=== PATIENT | female | born 1975 | race African-American/Black ===

== ENCOUNTER 2017-01-26 05:40 | Emergency (ER) | payer MEDICAID ==
[~2017-01-26] VITALS: Ht 175.3 cm; Wt 100.0 kg
[~2017-01-26 05:40] MED LIST: ACET-3161 PO
[2017-01-26] MEDS ORDERED: COCAINE 4% TOPICAL SOLN 4ML TOP ONE (08:15)
[2017-01-26 08:46] LABS: BASOPHILS % 0.5 % (0.0-2.0); EOSINOPHILS % 2.2 % (0.0-5.0); HEMATOCRIT. 38.6 % (36.0-48.0); LYMPHOCYTES % 31.9 % (20.0-50.0); MEAN CORPUSCULAR HEMOGLOBIN 28.4 pg (28.0-32.0); MEAN CORPUSCULAR VOLUME 83.9 fL (81.0-99.0); MONOCYTES % 7.4 % (2.0-8.0); PLATELET 295 x1000/uL (130-400); RED CELL DISTRIBUTION WIDTH 14.7 % (11.6-14.6)
[2017-01-26 09:02] LABS: CARBON DIOXIDE 28 mEq/L (21-32); CHLORIDE 108 mEq/L (98-107)
[2017-01-26 13:55] VITALS: BP 141/85
== END 2017-01-26 13:55 | disposition home or self-care (01) ==
LOC: ER 06:04
DX: R04.0 Epistaxis (principal); R51 Headache; I20.9 Angina pectoris, unspecified
CPT/HCPCS: 30901; 36415; 80053; 81025; 85025; 99284